=== PATIENT | female | born 1995 | race Caucasian/White ===

== ENCOUNTER 2019-01-01 20:18 | Emergency (ER) | payer BC, OTHER ==
[~2019-01-01] VITALS: Ht 154.9 cm; Wt 54.0 kg
--- NOTE | 2019-01-01 20:26 | NUR ---
pt here with " fiance and girlfriend". pt alert gcs 15. dr in same time. pt points to and c/o mid pelvic area abd pain x 3 days. associated with n/v/d after she eats. pt relates fever at home. pain rating 4. pt also c/o pain with ua and going ua more then usual. denies blood in ua. also c/o vaginal d/c. denies other vaginal c/os. no acute sighns of dyspnea noted. lungs cta bilaterally. abd soft nondistended tender to palpation all quads ecept ruq. done seing pt at 2030.
[2019-01-01] MEDS ORDERED: ONDANSETRON 4 MG/2 ML (SDV) Z0FRAN IVP ONE (20:30)
[2019-01-01] MEDS ORDERED: LACTATED RINGERS 1,000 ML IV SCH (20:30)
--- NOTE | 2019-01-01 20:35 | ED Abdominal Pain ---
General Chief Complaint: Abdominal/GI Problems Stated Complaint: ABD PAIN,VOMITING Source of Information: Patient Exam Limitations: No Limitations History of Present Illness Date Seen by Provider: January 01, 2019 Time Seen by Provider: 20:33 Initial Comments To ER per private vehicle with reports of suprapubic abdominal pain for 3 days, abdominal firmness, diarrhea, vomiting about 20 minutes consistently after eating. Chills but no fevers. Timing/Duration: 2-3 Days Severity/Quality: Moderate Location: Suprapubic Radiation: No Radiation Activities at Onset: None Associated Symptoms: Nausea/Vomiting Allergies and Home Medications Allergies Coded Allergies: No Known Drug Allergies (Unverified , 01/01/19) Patient Home Medication List Home Medication List Reviewed: Yes Review of Systems Review of Systems Constitutional: see HPI EENTM: No Symptoms Reported Respiratory: No Symptoms Reported Cardiovascular: No Symptoms Reported Gastrointestinal: See HPI, Abdominal Pain, Diarrhea, Nausea Genitourinary: No Symptoms Reported Musculoskeletal: no symptoms reported Skin: no symptoms reported Psychiatric/Neurological: No Symptoms Reported Endocrine: No Symptoms Reported Hematologic/Lymphatic: No Symptoms Reported Past Xihztki-Jcwncy-Xaljki Hx Patient Social History Recent Foreign Travel: No Contact w/Someone Who Travel: No Physical Exam Vital Signs Vital Signs - First Documented 01/01/19 20:33 Temp 98.5 Pulse 84 Resp 20 B/P (MAP) 127/78 (94) Capillary Refill : Height/Weight/BMI Height: '" Weight: lbs. oz. kg; BMI Method: General Appearance: WD/WN, no apparent distress HEENT: PERRL/EOMI, normal ENT inspection Respiratory: no respiratory distress, no accessory muscle use Cardiovascular: regular rate, rhythm, no murmur Gastrointestinal: normal bowel sounds, soft; No distended, No guarding, No rebound; tenderness (suprapubic) Extremities: normal range of motion, non-tender Neurologic/Psychiatric: alert, normal mood/affect, oriented x 3 Skin: normal color, warm/dry Progress/Results/Core Measures Results/Orders Lab Results Laboratory Tests Test 01/01/19 20:33 Range/Units White Blood Count 7.7 4.3-11.0 10^3/uL Red Blood Count 4.43 4.35-5.85 10^6/uL Hemoglobin 12.7 11.5-16.0 G/DL Hematocrit 37 35-52 % Mean Corpuscular Volume 84 80-99 FL Mean Corpuscular Hemoglobin 29 25-34 PG Mean Corpuscular Hemoglobin Concent 34 32-36 G/DL Red Cell Distribution Width 14.5 10.0-14.5 % Platelet Count 199 130-400 10^3/uL Mean Platelet Volume 12.4 H 7.4-10.4 FL Neutrophils (%) (Auto) 58 42-75 % Lymphocytes (%) (Auto) 28 12-44 % Monocytes (%) (Auto) 8 0-12 % Eosinophils (%) (Auto) 6 0-10 % Basophils (%) (Auto) 0 0-10 % Neutrophils # (Auto) 4.5 1.8-7.8 X 10^3 Lymphocytes # (Auto) 2.2 1.0-4.0 X 10^3 Monocytes # (Auto) 0.6 0.0-1.0 X 10^3 Eosinophils # (Auto) 0.4 H 0.0-0.3 10^3/uL Basophils # (Auto) 0.0 0.0-0.1 10^3/uL Urine Color YELLOW Urine Clarity CLEAR Urine pH 6 5-9 Urine Specific [place] 1.020 1.016-1.022 Urine Protein 1+ H NEGATIVE Urine Glucose (UA) NEGATIVE NEGATIVE Urine Ketones NEGATIVE NEGATIVE Urine Nitrite NEGATIVE NEGATIVE Urine Bilirubin NEGATIVE NEGATIVE Urine Urobilinogen 1 NORMAL MG/DL Urine Leukocyte Esterase 1+ H NEGATIVE Urine RBC (Auto) NEGATIVE NEGATIVE Urine RBC RARE /HPF Urine WBC 2-5 /HPF Urine Squamous Epithelial Cells 2-5 /HPF Urine Crystals NONE /LPF Urine Bacteria FEW H /HPF Urine Casts PRESENT /LPF Urine Hyaline Casts RARE /LPF Urine Mucus LARGE H /LPF Urine Culture Indicated NO Sodium Level 140 135-145 MMOL/L Potassium Level 3.8 3.6-5.0 MMOL/L Chloride Level 108 H 98-107 MMOL/L Carbon Dioxide Level 21 21-32 MMOL/L Anion Gap 11 5-14 MMOL/L Blood Urea Nitrogen 10 7-18 MG/DL Creatinine 0.74 0.60-1.30 MG/DL Estimat Glomerular Filtration Rate > 60 BUN/Creatinine Ratio 14 Glucose Level 85 70-105 MG/DL Calcium Level 9.7 8.5-10.1 MG/DL Corrected Calcium 8.5-10.1 MG/DL Total Bilirubin 0.8 0.1-1.0 MG/DL Aspartate Amino Transf (AST/SGOT) 14 5-34 U/L Alanine Aminotransferase (ALT/SGPT) 14 0-55 U/L Alkaline Phosphatase 68 40-136 U/L Total Protein 7.5 6.4-8.2 GM/DL Albumin 4.6 H 3.2-4.5 GM/DL Lipase 7 L 8-78 U/L Human Chorionic Gonadotropin, Quant 5255 H <5 MIU/ML Serum Test, Qualitative POSITIVE NEGATIVE My Orders Orders - MAHIN ARNOLD APRN Cbc With Automated Diff (01/01/19 20:24) Comprehensive Metabolic Panel (01/01/19 20:24) Lipase (01/01/19 20:24) Ua Culture If Indicated (01/01/19 20:24) Hcg,Qualitative Serum (01/01/19 20:24) Ed Iv/Invasive Line Start (01/01/19 20:24) Lactated Ringers (Lr 1000 Ml Iv Solution (01/01/19 20:30) Ondansetron Injection (Zofran Injectio (01/01/19 20:30) Hcg,Quantitative (01/01/19 20:59) Medications Given in ED Current Medications Medications Dose Ordered Sig/Hillary Route Start Time Stop Time Status Last Admin Dose Admin Ondansetron HCl 8 mg ONCE ONCE IVP 01/01/19 20:30 01/01/19 20:31 DC 01/01/19 20:39 8 MG Vital Signs/I&O 01/01/19 20:33 Temp 98.5 Pulse 84 Resp 20 B/P (MAP) 127/78 (94) Departure Communication (Admissions) [id number]*discussed with her the positive test. She states that she currently has 2 children, no history of miscarriage. She currently rates her suprapubic abdominal pain at a 3 out of 10, no peritoneal signs. She is not tachycardic or hypotensive, hemoglobin is within the normal range, no leukocytosis, no history of vaginal bleeding. We do not have ultrasound available at this time,I do not suspect acute abdomen, will set her up with outpatient US tomorrow to eval for IUP and hope to rule out Ectopic. She states her menses are irregular and she has no idea when her last menstrual cycle was. We do have ultrasound available tomorrow and I have scheduled her one for 9:45 AM. Patient is in the process of moving to [place], does not have a local PCP. I spoke with Dr. Herrera, she advises to have the patient call tomorrow morning and she can have an appointment set up with Lupe Tan, nurse practitioner who works with Dr. Stockton. I will Have these results of ultrasound faxed to them. Impression Primary Impression: test positive Additional Impressions: Nausea and vomiting Qualified Codes: R11.2 - Nausea with vomiting, unspecified Suprapubic abdominal pain Disposition: 01 HOME, SELF-CARE Condition: Stable Departure-Patient Inst. Decision time for Depature: 21:21 Referrals: JORGE HERRERA DO NO,LOCAL PHYSICIAN (PCP) Primary Care Physician Patient Instructions: Nausea and Vomiting of (DC), Symptoms Add. Discharge Instructions: 1. Return tomorrow for the pelvic ultrasound to be done outpatient. Call the number on the left corner of the order sheet to ensure that this time hasn't changed, currently scheduled for 9:45 AM. Return to ER before then for any lightheadedness intolerable abdominal pain and we will have to send you to one of the [facility] where ultrasound is available to rule out ectopic . Call [facility] tomorrow morning at 8 AM to make an appointment to be seen to follow up on these results. Advised the corporate receptionist when you speak to her tomorrow morning that we talked with Dr. Javier irene and she recommended U to be seen by Lupe Ambrocio TUBE BENDER HAND with Dr Stockton as soon as possible to follow up on the ultrasound results. All discharge instructions reviewed with patient and/or family. Voiced understanding. Copy Copies To 1: LUIS ALBERTO STOCKTON MD, PETER J APRN January 01, 2019 20:35
--- NOTE | 2019-01-01 20:35 | NUR ---
labs and ua to lab by tech
[2019-01-01] MEDS ORDERED: ALPR0.5T PO (20:39)
[2019-01-01 20:41] LABS: BILIRUBIN,URINE NEGATIVE (NEGATIVE); CLARITY,URINE CLEAR; COLOR,URINE YELLOW; GLUCOSE, URINE (UA) NEGATIVE (NEGATIVE); KETONES,URINE NEGATIVE (NEGATIVE); LEUKOCYTE ESTERASE ,URINE 1+ (NEGATIVE); NITRITE,URINE NEGATIVE (NEGATIVE); PH,URINE 6 (5-9); PROTEIN,URINE 1+ (NEGATIVE); UROBILINOGEN,URINE 1 MG/DL (NORMAL)
[2019-01-01 20:42] LABS: BASOPHILS % (AUTO) 0 % (0-10); EOSINOPHILS # (AUTO) 0.4 10^3/uL (0.0-0.3); EOSINOPHILS % (AUTO) 6 % (0-10); HEMATOCRIT 37 % (35-52); HEMOGLOBIN 12.7 G/DL (11.5-16.0); LYMPHOCYTES # (AUTO) 2.2 X 10^3 (1.0-4.0); LYMPHOCYTES % (AUTO) 28 % (12-44); MEAN CORPUSCULAR HEMOGLOBIN 29 PG (25-34); MEAN CORPUSCULAR HGB CONC 34 G/DL (32-36); MEAN CORPUSCULAR VOLUME 84 FL (80-99); MEAN PLATELET VOLUME 12.4 FL (7.4-10.4); MONOCYTES # (AUTO) 0.6 X 10^3 (0.0-1.0); MONOCYTES % (AUTO) 8 % (0-12); NEUTROPHILS # (AUTO) 4.5 X 10^3 (1.8-7.8); NEUTROPHILS % (AUTO) 58 % (42-75); PLATELET COUNT 199 10^3/uL (130-400); RED CELL DISTRIBUTION WIDTH 14.5 % (10.0-14.5); WHITE BLOOD COUNT 7.7 10^3/uL (4.3-11.0)
[2019-01-01 20:53] LABS: BACTERIA,URINE FEW /HPF; HYALINE CASTS, URINE RARE /LPF; RBC,URINE RARE /HPF
[2019-01-01 21:08] LABS: ALANINE AMINOTRANSFERASE 14 U/L (0-55); ALBUMIN 4.6 GM/DL (3.2-4.5); ALKALINE PHOSPHATASE 68 U/L (40-136); BILIRUBIN,TOTAL 0.8 MG/DL (0.1-1.0); BUN/CREATININE RATIO 14; CALCIUM 9.7 MG/DL (8.5-10.1); CARBON DIOXIDE 21 MMOL/L (21-32); CHLORIDE 108 MMOL/L (98-107); CREATININE SERUM 0.74 MG/DL (0.60-1.30); GFR ESTIMATED > 60; GLUCOSE 85 MG/DL (70-105); LIPASE 7 U/L (8-78); POTASSIUM 3.8 MMOL/L (3.6-5.0); SODIUM 140 MMOL/L (135-145); TOTAL PROTEIN 7.5 GM/DL (6.4-8.2)
--- NOTE | 2019-01-01 21:34 | NUR ---
pt remains alert gcs 15. fiance and girlfriend remains in the room. they are all watching tv. pt still c/o abd pain rating 4. denies nausea and no v/d noted in er visit thus far. no acute sighns of dyspnea noted. liter bolus completed.
[2019-01-01 21:36] VITALS: BP 95/61
[2019-01-01 21:46] VITALS: BP 95/61
--- NOTE | 2019-01-01 21:46 | NUR ---
d/c instructions to pt . told to read all papers. no scripts given. pt knows f/u. i went over the handtyped by information on the chart. iv d/cd by me prior to d/c. d/c instructions to pt. told to read all papers. no scripts given. pt left ambulatory with fiance and girlfriend. pt knows f/u. i went over the handtyped by information on the chart. iv d/c by me prior to d/c. order for out pt u/s given to pt.
--- OUTSIDE RECORDS SUMMARY | 2019-01-01 23:48 | XMS REPORT | Continuity of Care Document ---
Author Organization Unknown Address Unknown Allergies Active Description Code Type Severity Reaction Onset Reported/Identified Relationship to Patient Clinical Status Yes No Known Medication Allergies Drug N/A N/A Medications There is no data. Problems There is no data. Procedures There is no data. Results There is no data. Encounters ACCT No. Visit Date/Time Discharge Status Pt. Type Provider Facility Loc./Unit Complaint [id number] 12/03/2018 15:36:02 ACT Unknown [id number] 05/20/2018 08:25:00 05/22/2018 13:45:00 DIS Inpatient [facility] JAMI OB labor [id number] 05/20/2018 06:02:00 05/20/2018 08:25:00 DIS Emergency [facility] JAMI OB contractions
== END 2019-01-01 21:46 | disposition home or self-care (01) ==
LOC: ER 20:21
DX: R11.2 Nausea with vomiting, unspecified (principal); R10.30 Lower abdominal pain, unspecified; Z32.01 Encounter for pregnancy test, result positive
CPT/HCPCS: 36415; 80053; 81000; 83690; 84702; 84703; 85025; 96374

== ENCOUNTER → 2019-01-02 | Outpatient (CLI) | payer BC ==
[~2019-01-02] MED LIST: ALPR0.5T PO
--- NOTE | 2019-01-02 11:06 | Diagnostic Imaging Report ---
Indication: Positive test. Patient's suprapubic pain. There is an intrauterine gestational sac measuring 9 mm x 7 mm x 6 mm. No definite pole is seen at this time. No perigestational sac hemorrhage is detected. Adnexal evaluation was performed. Ovaries are obscured by bowel gas. No adnexal mass or free fluid is seen. Impression: Tiny intrauterine gestational sac without evidence of pole. This likely owing to very early . Followup with serial beta hCG levels and/or ultrasound is recommended to confirm viability. Dictated by: Dictated on workstation # [id number]
== END ==
LOC: RAD 09:49
PROVIDERS: ATTEND Nurse Practitioner Family
DX: Z32.01 Encounter for pregnancy test, result positive (principal); R10.2 Pelvic and perineal pain
CPT/HCPCS: 76801; 76817

== ENCOUNTER 2019-05-23 21:39 | Outpatient (CLI) | payer BC ==
[~2019-05-23] VITALS: Ht 160 cm; Wt 64.2 kg
--- NOTE | 2019-05-23 21:45 | NUR ---
MARTIN GUZMAN presented to unit via ambulation from ED, accompanied by friend, with c/o PAIN IN VAGINA AND BACK. MARTIN GUZMAN weighed, gowned, voided, and to bed. EFHM and TOCO applied, VS taken. MARTIN GUZMAN oriented to bed controls, call light, TV, heat, and A/C controls.
[2019-05-23 21:59] LABS: BILIRUBIN,URINE NEGATIVE (NEGATIVE); CLARITY,URINE CLEAR; COLOR,URINE YELLOW; GLUCOSE, URINE (UA) NEGATIVE (NEGATIVE); KETONES,URINE NEGATIVE (NEGATIVE); LEUKOCYTE ESTERASE ,URINE 3+ (NEGATIVE); NITRITE,URINE NEGATIVE (NEGATIVE); PH,URINE 6.5 (5-9); PROTEIN,URINE 1+ (NEGATIVE); UROBILINOGEN,URINE 1 MG/DL (NORMAL)
[2019-05-23 22:08] LABS: AMORPHOUS SEDIMENT,UR FEW AMOR URATES /LPF; BACTERIA,URINE FEW /HPF; RBC,URINE RARE /HPF; WBC,URINE 25-50 /HPF
[2019-05-23] MEDS ORDERED: FLUO10CA29 PO (22:09)
[2019-05-23] MEDS ORDERED: CEPHALEXIN 250 MG (KEFLEX) CAP PO ONE ×3 (22:27→22:30)
[2019-05-23] MEDS ORDERED: CEPH-506 PO (22:28)
[2019-05-23 22:29] VITALS: BP 136/69
[2019-05-23 22:40] VITALS: BP 136/69
--- NOTE | 2019-05-23 22:49 | NUR ---
Pt continues to drink H2O and rest while on EFM, pt states feeling better, education given on UTI symptoms and precautions. while continuing water challenge.
--- NOTE | 2019-05-23 23:09 | NUR ---
Pt ambulated to private vehicle with family with written and verbal discharge orders.
[2019-05-23 23:12] VITALS: BP 136/69
--- NOTE | 2019-05-25 08:38 | Physician Query-Final Dx ---
CÉSAR ROBLES 05/25/19 0838: Clinic Account Progress/Dx Physician Query: Please give diagnosis Please include # weeks of gestation Date of Service May 23, 2019 at 21:39 TADEO COLON MD 05/27/19 0718: Clinic Account Progress/Dx DIAGNOSIS: Diagnosis 1. Intrauterine at 26 weeks gestation 2. Urinary tract infection CÉSAR ROBLES May 25, 2019 08:38 TADEO COLON MD May 27, 2019 07:18
== END 2019-05-23 23:08 | disposition home or self-care (01) ==
LOC: WSo 21:39 → LDRP 21:41 → WSo 23:08
PROVIDERS: ATTEND Family Medicine
DX: O26.892 Other specified pregnancy related conditions, second trimester (principal); R10.2 Pelvic and perineal pain; Z3A.25 25 weeks gestation of pregnancy
CPT/HCPCS: 81000; 87088; 99212

== ENCOUNTER 2019-08-09 16:42 | Outpatient (CLI) | payer BC ==
[~2019-08-09] VITALS: Ht 154.9 cm; Wt 71.1 kg
[~2019-08-09 16:42] MED LIST changes: +CEPH-506 PO; +FLUO10CA29 PO
--- NOTE | 2019-08-09 16:55 | NUR ---
MARTIN GUZMAN presented to unit via W/C from ED, accompanied by family member, with c/o vaginal pressure & pain x2 days. Pt. weighed, gowned, voided, and to bed. EFHM and TOCO applied, VS taken. Pt. oriented to bed controls, call light, TV, heat, and A/C controls.
--- NOTE | 2019-08-09 17:05 | NUR ---
Pt reports "heart beating fast in chest", dizziness. head of bed lowered. cool wash cloth applied to neck. fan on. SpO2 monitor applied. reassurance given. reports hx of anxiety, depression and PTSD. presents to L&D unit with c/o vaginal pressure x3 weeks. states her mother told her to do exercises, couldn't walk the next day. "wanted a second opinion"r/t pain. is a patient of in [place], [place]. was diagnosed with vaginosis approx 1 month ago- unable to afford antibiotics. reports vaginal discharge with odor- milky white in color. reports pain in middle of back that extends up back and into chest. c/o pain in legs x2 days- "unable to walk by self". denies urinary sx's except hesitancy. denies vaginal bleeding or leaking fluid. reports +FM.
[2019-08-09 17:16] VITALS: BP 132/70
[2019-08-09 17:18] LABS: BILIRUBIN,URINE NEGATIVE (NEGATIVE); CLARITY,URINE CLEAR; COLOR,URINE YELLOW; GLUCOSE, URINE (UA) NEGATIVE (NEGATIVE); KETONES,URINE NEGATIVE (NEGATIVE); LEUKOCYTE ESTERASE ,URINE NEGATIVE (NEGATIVE); NITRITE,URINE NEGATIVE (NEGATIVE); PROTEIN,URINE NEGATIVE (NEGATIVE)
[2019-08-09 17:23] LABS: BACTERIA,URINE TRACE /HPF
--- NOTE | 2019-08-09 17:30 | NUR ---
was called. no answer on cell phone. message left.
--- NOTE | 2019-08-09 17:52 | NUR ---
was called. pt's admit c/o, monitor tracing, and VS reviewed. new orders received.
[2019-08-09] MEDS ORDERED: ACETAMINOPHEN 500 MG TAB (TYLENOL) ONE (17:57)
[2019-08-09] MEDS ORDERED: ACETAMINOPHEN 500 MG TAB (TYLENOL) PO ONE (18:00)
[2019-08-09] MEDS ORDERED: APAP 325 MG/10.15 ML LIQ (TYLENOL) UDC ONE (18:06)
--- NOTE | 2019-08-09 18:09 | NUR ---
SVE 1cm external,thick & posterior. closed internal. unable to determine presenting part. Addendum: 08/09/19 at 1842 by DONTRELL PEREZ RN vaginal culture obtained.
[2019-08-09] MEDS ORDERED: APAP 325 MG/10.15 ML LIQ (TYLENOL) UDC PO ONE (18:15)
[2019-08-09 18:31] LABS: MEAN PLATELET VOLUME 11.7 FL (7.4-10.4); RED CELL DISTRIBUTION WIDTH 13.7 % (10.0-14.5); WHITE BLOOD COUNT 11.5 10^3/uL (4.3-11.0)
[2019-08-09 18:48] LABS: ALANINE AMINOTRANSFERASE 10 U/L (0-55); ALBUMIN 3.4 GM/DL (3.2-4.5); ALKALINE PHOSPHATASE 150 U/L (40-136); BILIRUBIN,TOTAL 0.4 MG/DL (0.1-1.0); BUN/CREATININE RATIO 8; CALCIUM 8.5 MG/DL (8.5-10.1); CARBON DIOXIDE 18 MMOL/L (21-32); CHLORIDE 106 MMOL/L (98-107); CREATININE SERUM 0.62 MG/DL (0.60-1.30); GFR ESTIMATED > 60; GLUCOSE 118 MG/DL (70-105); POTASSIUM 3.9 MMOL/L (3.6-5.0); SODIUM 135 MMOL/L (135-145); TOTAL PROTEIN 6.2 GM/DL (6.4-8.2)
--- NOTE | 2019-08-09 19:15 | NUR ---
was called with lab results. dismissal orders received. update given to LUCIANA Gregory.
[2019-08-09] MEDS ORDERED: cefTRIAXone 1,000 MG/2.86 ml vial (IM ONLY) ONE (19:17)
[2019-08-09] MEDS ORDERED: LIDOCAINE 1% INJ 20 ML 20 ML VIAL ONE (19:19)
--- NOTE | 2019-08-09 19:24 | NUR ---
POC reviewed with pt and family member. pt hostile, yelling @ this RN "this is why I don't like my Dr. she's telling me that I'm 1cm, 50% and can feel my baby's head. your telling me I'm not." reassurance given to pt. attempting to calm pt down. reviewed labor sx's with pt.
[2019-08-09] MEDS ORDERED: LIDOCAINE 1% INJ 20 ML 20 ML VIAL INJ ONE (19:30)
[2019-08-09] MEDS ORDERED: cefTRIAXone 1,000 MG/2.86 ml vial (IM ONLY) IM ONE (19:30)
--- NOTE | 2019-08-09 19:40 | NUR ---
Discharge instructions discussed with patient and friend. No questions or concerns voiced. Signature sheet signed, placed on chart. Offered wheelchair, denied per pt. Pt ambulating off unit to private vehicle with friend at side. No signs of distress noted.
--- NOTE | 2019-08-10 08:42 | Physician Query-Final Dx ---
Clinic Account Progress/Dx Physician Query: Please give diagnosis Please give # weeks gestation Date of Service Aug 09, 2019 at 16:42 CÉSAR ROBLES Aug 10, 2019 08:42
== END 2019-08-09 19:40 | disposition home or self-care (01) ==
LOC: LDRP 16:42 → WSo 16:42
PROVIDERS: ATTEND Family Medicine
DX: R10.2 Pelvic and perineal pain (principal)
CPT/HCPCS: 36415; 80053; 81000; 85027; 87088; 87210; 99214

== ENCOUNTER 2019-08-21 22:05 | Outpatient (CLI) | payer BC ==
[~2019-08-21] VITALS: Ht 154.9 cm; Wt 71.6 kg
--- NOTE | 2019-08-21 22:10 | NUR ---
MARTIN GUZMAN presented to unit via from ED, accompanied by FRIEND, with c/o CONTRACTIONS. MARTIN GUZMAN weighed, gowned, voided, and to bed. EFHM and TOCO applied, VS taken. MARTIN GUZMAN oriented to bed controls, call light, TV, heat, and A/C controls.
[2019-08-21 22:23] VITALS: BP 134/72
[2019-08-21 22:30] VITALS: BP 134/72
[2019-08-21 22:45] VITALS: BP 111/68
[2019-08-21 22:45] LABS: BILIRUBIN,URINE NEGATIVE (NEGATIVE); CLARITY,URINE CLEAR; COLOR,URINE YELLOW; GLUCOSE, URINE (UA) NEGATIVE (NEGATIVE); KETONES,URINE NEGATIVE (NEGATIVE); LEUKOCYTE ESTERASE ,URINE TRACE (NEGATIVE); NITRITE,URINE NEGATIVE (NEGATIVE); PROTEIN,URINE NEGATIVE (NEGATIVE)
[2019-08-21 22:58] LABS: BACTERIA,URINE TRACE /HPF; WBC,URINE RARE /HPF
[2019-08-21 23:15] VITALS: BP 107/60
--- NOTE | 2019-08-21 23:15 | NUR ---
REPORT OF ASSESSMENT AND UA RESULT CALLED TO DR ELKINS. ORDER RECEIVED TO D/C TO HOME, CONDITION IS STABLE FOR DISCHARGE.
--- NOTE | 2019-08-21 23:20 | NUR ---
PT INFORMED OF PLAN OF CARE. EFM D/C'D AND PT ALLOWED TO DRESS.
--- NOTE | 2019-08-21 23:30 | NUR ---
DISCHARGE INSTRUCTIONS GIVEN. PT VERBALIZES UNDERSTANDING AND SIGNATURE OBTAINED. PT D/C OFF UNIT ACCOMPANIED BY FRIEND. PT TO PRIVATE VEHICLE IN STABLE CONDITION.
--- NOTE | 2019-08-24 08:31 | Physician Query-Final Dx ---
CÉSAR ROBLES 08/24/19 0831: Clinic Account Progress/Dx Physician Query: Please give diagnosis Please include # weeks gestation Date of Service Aug 21, 2019 at 22:05 JAMIL ELKINS DO 08/24/19 1422: Clinic Account Progress/Dx Physician Query: Please give diagnosis DIAGNOSIS: Diagnosis Intrauterine at 25 weeks 2. Vaginal Pressure 3. Vaginal Pain CÉSAR ROBLES Aug 24, 2019 08:31 JAMIL ELKINS DO Aug 24, 2019 14:22
== END 2019-08-21 23:30 | disposition home or self-care (01) ==
LOC: WSo 22:05 → LDRP 22:05 → WSo 23:30
PROVIDERS: ATTEND Obstetrics & Gynecology
DX: O26.892 Other specified pregnancy related conditions, second trimester (principal); R10.2 Pelvic and perineal pain; Z3A.25 25 weeks gestation of pregnancy
CPT/HCPCS: 81000; 99213

== ENCOUNTER 2019-08-23 21:46 | Outpatient (CLI) | payer BC ==
[~2019-08-23] VITALS: Ht 154.9 cm; Wt 71.3 kg
--- NOTE | 2019-08-23 21:53 | NUR ---
MARTIN GUZMAN presented to unit via ambulation from ED, accompanied by visitor, with c/o CONTRACTIONS. MARTIN GUZMAN weighed, gowned, voided, and to bed. EFHM and TOCO applied, VS taken. MARTIN GUZMAN oriented to bed controls, call light, TV, heat, and A/C controls.
[2019-08-23 22:00] VITALS: BP 117/80
[2019-08-23 22:16] LABS: BILIRUBIN,URINE NEGATIVE (NEGATIVE); CLARITY,URINE CLEAR; COLOR,URINE YELLOW; GLUCOSE, URINE (UA) NEGATIVE (NEGATIVE); KETONES,URINE TRACE (NEGATIVE); LEUKOCYTE ESTERASE ,URINE 2+ (NEGATIVE); NITRITE,URINE NEGATIVE (NEGATIVE); PH,URINE 7.5 (5-9); PROTEIN,URINE NEGATIVE (NEGATIVE)
[2019-08-23 22:31] LABS: BACTERIA,URINE MODERATE /HPF; SQUAMOUS EPITHELIAL CELL,UR 25-50 /HPF; WBC,URINE 25-50 /HPF
--- NOTE | 2019-08-23 23:00 | NUR ---
SVE performed. no cervical change noted.
--- NOTE | 2019-08-23 23:16 | NUR ---
notified of exam, assessment, u/a. Discharge order received.
--- NOTE | 2019-08-23 23:25 | NUR ---
Discharge instructions verbalized with pt. pt very upset about going home. Wants to be induced. Verbalized with pt standards of care. Labor precautions given. Pt states she is going to follow up tomorrow in [place]
--- NOTE | 2019-08-24 08:37 | Physician Query-Final Dx ---
CÉSAR ROBLES 08/24/19 0837: Clinic Account Progress/Dx Physician Query: Please give diagnosis Please give # weeks gestation Date of Service Aug 23, 2019 at 21:46 JAMIL ELKINS DO 08/24/19 1642: Clinic Account Progress/Dx Physician Query: Please give diagnosis DIAGNOSIS: Diagnosis Intrauterine at 25 weeks 2. Vaginal Pain 3. Vaginal Pressure CÉSAR ROBLES Aug 24, 2019 08:37 JAMIL ELKINS DO Aug 24, 2019 16:42
[2019-08-24] MEDS ORDERED: D5 LR IV SOLUTION 1,000 ML IV ONE (13:25)
[2019-08-24] MEDS ORDERED: OXYTOCIN PRE-MIX DRIP 500 ML IV ONE (13:28)
== END 2019-08-23 23:25 | disposition home or self-care (01) ==
LOC: WSo 21:46 → LDRP 21:46 → WSo 23:25
PROVIDERS: ATTEND Obstetrics & Gynecology
DX: O26.892 Other specified pregnancy related conditions, second trimester (principal); R10.2 Pelvic and perineal pain; Z3A.25 25 weeks gestation of pregnancy
CPT/HCPCS: 81000; 87088; 99213

== ENCOUNTER 2019-08-24 13:25 | Inpatient (IN) | payer BC ==
[2019-08-24] VITALS (10 sets, daily range): BP systolic 105–163; BP diastolic 58–85
[~2019-08-24] VITALS: Ht 167 cm; Wt 71.3 kg
--- NOTE | 2019-08-24 13:25 | NUR ---
MARTIN GUZMAN presented to unit via WC from HOME, accompanied by FRIEND, with c/o LABOR. MARTIN GUZMAN weighed, gowned, voided, and to bed. EFHM and TOCO applied, VS taken. MARTIN GUZMAN oriented to bed controls, call light, TV, heat, and A/C controls.
[2019-08-24] MEDS: D5 LR IV SOLUTION 1,000 ML IV SCH (13:32)
--- NOTE | 2019-08-24 14:17 | NUR ---
PITOCIN COMPLETE, 2ND BAG STARTED PER ORDER, PT HOLDING INFANT IN ARMS, PT FRIEND AT SIDE, FFU/2, LT LOCHIA NOTED, WILL MONITOR CLOSELY.
[2019-08-24] MEDS ORDERED: OXYTOCIN/NORMAL SALINE 500 ML IV ONE (14:21)
[2019-08-24] MEDS ORDERED: OXYTOCIN/NORMAL SALINE 500 ML IV SCH ×2 (14:50→15:45)
[2019-08-24] MEDS ORDERED: BENZOCAINE/MENTHOL (DERMOPLAST) 60 ML CAN TP PRN (15:00)
[2019-08-24] MEDS ORDERED: WITCH HAZEL(TUCKS) 40 EA JAR TOP PRN (15:00)
[2019-08-24] MEDS ORDERED: MEASLES,MUMPS,RUBELLA 1 EA INJ SQ ONE (15:00)
[2019-08-24] MEDS ORDERED: TETANUS,DIPTH,PERTUSS P/F (BOOSTRIX) 0.5 ML VIAL IM ONE (15:00)
[2019-08-24] MEDS ORDERED: DIBUCAINE (NUPERCAINAL) 1% OINT 30 GM TOP PRN (15:00)
--- NOTE | 2019-08-24 15:03 | History & Physical-OB ---
OB - Chief Complaint & HPI Date/Time Date of Admission: Date of Admission: Aug 24, 2019 at 1:25 pm Date seen by a Provider: Aug 24, 2019 Time Seen by a Provider: 14:00 Chief Complaint/History OB-Reason for Admission/Chief: Onset of Labor Hx : 3 Hx Para: 1 Other reason for admission: Patient presented with no local physician complete and +2 with no analgesia, and the covering desk monitor physician in a . I was contacted for precipatous delivery History of Labs unknown, will obtain from patient's physician Allergies and Home Medications Allergies Coded Allergies: No Known Drug Allergies (Unverified , 01/01/19) Home Medications Fluoxetine HCl 10 Mg Capsule, 10 MG PO DAILY, (Reported) Patient Home Medication List Home Medication List Reviewed: Yes OB - History Hx of Present Care: Yes (but unknown complications, and labs. Had care in [place] without complication per the patient.) Patient Past Medical History anxiety Social History/Family History 2nd Hand Smoke Exposure: Yes OB - Admission Exam Physical Exam HEENT: NCAT Lungs: Clear Abdomen: Gravid Extremities: Normal Reflexes: Normal Cervical Dilatation: 10cm Effacement: 100% Station: +3 Membranes: Intact Heart Rate: 130's Accelerations: Accelerations Present Decelerations: No Decelerations Telephone Instrument Supervisor Variability: Average (6-25) Contractions on Admission: < 5 Minutes Apart Intensity: Firm OB - Assessment/Plan/Diagnosis Assessment Assessment: active labor Admission Dx 23 yo @ 39 weeks No local physician for care in [place] Precipitous delivery Admission Status: Inpatient Order (span 2 midnights) Reason for Inpatient Admission: Term delivery vaginal Plan Plan: Expectant Management Other Plan Arom and anticipate impending delivery TORY MEJIA DO Aug 24, 2019 3:03 pm
--- NOTE | 2019-08-24 15:05 | OB Labor & Delivery Record ---
L&D History Date of Service Date of Service: Aug 24, 2019 History Hx : 3 Hx Para: 1 Complications care in [place], no records available at time of delivery Operative Indications (Cesarea: N/A-Vaginal Delivery Intrapartal Events: Precipitous Labor < 3 hrs L&D Stage1 Stage One Onset of Labor - Date: Aug 24, 2019 Progress/Notes Patient presented complete and bulging membranes at +2 station when I was contacted and presented emergent for delivery L&D Stage2 Stage Two Stage II Date: Aug 24, 2019 Monitors and Tracing Monitor Mode: External Monitor Accelerations: Uniform Monitor Decelerations: Variable Custodial Variability: Average (6-10) Short Term Variability: Present Position: Right Occiput Anterior Presentation: Vertex Cord Descript/Complications Cord Vessel Description: 3 Vessels Complications nuchal cord x 1 Delivery Type Infant Delivery Method: Spontaneous Vaginal Anterior Shoulder: Right Episiotomy/Perineal Laceration Laceraction(s)/Extensions: No Condition of Delivery 1 minute Comment: 8 5 minute Comment: 9 Notes live male weight pending Condition of Condition of : Living Exam: No Observed Abnormalities Resuscitation Resuscitation: N/A - Spontaneous Resp L&D Stage3 Stage Three Stage III Date: Aug 24, 2019 Pictocin Pitocin Administration Comment: 30 mu wide open at delivery of placenta Placenta Delivery Placenta Delivery: Spontaneous Delivery Summary Summary Estimated blood loss (mL): 300 Attending at delivery: Tory Mejia DO Condition of Delivery Examined: Cervix Examined, Uterus Explored Post Hemorrhage: No Condition of Mother stable Condition of (s) stable TORY MEJIA DO Aug 24, 2019 3:05 pm
--- NOTE | 2019-08-24 15:45 | NUR ---
PT UP TO BR, VOIDED TRANSFERRED TO PP ROOM BY WC, BRAD- CARE COMPLETED, NO DISTRESS NOTED, LORTAB AND MOTRIN GIVEN, PLAN OF CARE EXPLAINED, INFANT AT BEDSIDE.
[2019-08-24] MEDS: HYDROcodone/APAP 5 MG/325 MG (LORTAB) TAB PO PRN (15:56)
[2019-08-24] MEDS: IBUPROFEN 600 MG (MOTRIN) TAB PO SCH ×2 (15:56→21:37)
[2019-08-24 16:44] LABS: AMPHETAMINE SCREEN, URINE NEGATIVE (NEGATIVE); BARBITURATE SCREEN URINE NEGATIVE (NEGATIVE); BENZODIAZEPINES SCREEN URINE NEGATIVE (NEGATIVE); CANNABINOID SCREEN, URINE NEGATIVE (NEGATIVE); COCAINE SCREEN URINE NEGATIVE (NEGATIVE); METHADONE STAT NEGATIVE (NEGATIVE); METHAMPHETAMINE SCREEN URINE S NEGATIVE (NEGATIVE); OPIATE SCREEN URINE NEGATIVE (NEGATIVE); OXYCODONE STAT NEGATIVE (NEGATIVE); PROPOXYPHENE STAT NEGATIVE (NEGATIVE); TRICYCLIC ANTIDEPRESSANTS SCRE NEGATIVE (NEGATIVE)
[2019-08-24 16:50] LABS: BASOPHILS % (AUTO) 0 % (0-10); EOSINOPHILS # (AUTO) 0.1 10^3/uL (0.0-0.3); EOSINOPHILS % (AUTO) 0 % (0-10); HEMATOCRIT 30 % (35-52); HEMOGLOBIN 9.8 G/DL (11.5-16.0); LYMPHOCYTES # (AUTO) 1.3 X 10^3 (1.0-4.0); LYMPHOCYTES % (AUTO) 7 % (12-44); MEAN CORPUSCULAR HGB CONC 32 G/DL (32-36); MEAN CORPUSCULAR VOLUME 85 FL (80-99); MEAN PLATELET VOLUME 12.3 FL (7.4-10.4); MONOCYTES # (AUTO) 0.8 X 10^3 (0.0-1.0); MONOCYTES % (AUTO) 4 % (0-12); NEUTROPHILS % (AUTO) 88 % (42-75); PLATELET COUNT 178 10^3/uL (130-400); RED CELL DISTRIBUTION WIDTH 14.6 % (10.0-14.5); WHITE BLOOD COUNT 18.1 10^3/uL (4.3-11.0)
[2019-08-24 16:52] LABS: MEAN CORPUSCULAR HEMOGLOBIN 27 PG (25-34)
--- NOTE | 2019-08-24 18:50 | NUR ---
PT RESTING COMFORTABLY IN BED WITH AT SIDE, NO DISTRESS NOTED, WILL MONITOR.
--- NOTE | 2019-08-24 19:17 | NUR ---
REPORT TO HERMELINDA CHOWDHURY
--- NOTE | 2019-08-24 21:30 | NUR ---
Discussion with mother about time of stay, feeding type and appropriate time frame. Pt discussed how she lost custody of previous child due to malnourishment. Pt states she was and was eating well but infant continued to loss wt. pt educated on eating well and hydration. Pt reassured that she can breast and bottle feed as long as is eating well every couple hours. SL removed and mother resting in bed with family and friends present. All questions answered at this time.
[2019-08-24] MEDS: DOCUSATE SODIUM 100 MG (COLACE) CAP PO SCH (21:37)
[2019-08-25] VITALS: BP 101/59
--- NOTE | 2019-08-25 00:05 | NUR ---
pt resting watching TV with . No concerns at this time
[2019-08-25 04:10] VITALS: BP 103/58
[2019-08-25] MEDS: IBUPROFEN 600 MG (MOTRIN) TAB PO SCH ×4 (04:27→23:49)
[2019-08-25 05:18] LABS: BASOPHILS % (AUTO) 0 % (0-10); EOSINOPHILS # (AUTO) 0.2 10^3/uL (0.0-0.3); EOSINOPHILS % (AUTO) 2 % (0-10); HEMATOCRIT 26 % (35-52); HEMOGLOBIN 8.5 G/DL (11.5-16.0); LYMPHOCYTES # (AUTO) 2.7 X 10^3 (1.0-4.0); LYMPHOCYTES % (AUTO) 23 % (12-44); MEAN CORPUSCULAR HEMOGLOBIN 28 PG (25-34); MEAN CORPUSCULAR HGB CONC 32 G/DL (32-36); MEAN CORPUSCULAR VOLUME 86 FL (80-99); MEAN PLATELET VOLUME 12.3 FL (7.4-10.4); MONOCYTES # (AUTO) 0.7 X 10^3 (0.0-1.0); MONOCYTES % (AUTO) 6 % (0-12); NEUTROPHILS # (AUTO) 7.8 X 10^3 (1.8-7.8); NEUTROPHILS % (AUTO) 68 % (42-75); PLATELET COUNT 139 10^3/uL (130-400); RED CELL DISTRIBUTION WIDTH 14.5 % (10.0-14.5); WHITE BLOOD COUNT 11.4 10^3/uL (4.3-11.0)
[2019-08-25] MEDS: D5 LR IV SOLUTION 1,000 ML IV SCH (05:19)
[2019-08-25] MEDS: CATHETER FLUSH 10 ML SYR IV SCH (05:19)
[2019-08-25] MEDS ORDERED: DIBU30OI TOP (07:57)
[2019-08-25] MEDS ORDERED: BENZ78AE2 TP (07:57)
[2019-08-25] MEDS ORDERED: DOCU100C37 PO (07:57)
[2019-08-25] MEDS ORDERED: ACHD5005 PO (07:57)
[2019-08-25] MEDS ORDERED: IBUP-844 PO (07:57)
--- NOTE | 2019-08-25 07:58 | Discharge Inst-Women's Service ---
Discharge Inst-Women's Serv Depart Medication/Instructions New, Converted or Re-Newed RX: RX on Chart Problems Reviewed?: Yes Consults/Follow Up Additional Follow Up: Yes Activity Activity: Activity as Tolerated Driving Instructions: No Driving for 1 Week NO SMOKING: NO SMOKING Nothing Inside Vagina: No Douching, No [place], No Tampons Diet Discharge Diet: No Restrictions Symptoms to Report to : Bleeding Excessive, Pain Increased, Fever Over 101 Degrees F, Vaginal Bleeding Increase, Questions/Concerns For Any Problems or Questions: Contact Your Physician TORY MEJIA DO Aug 25, 2019 07:57
--- NOTE | 2019-08-25 08:00 | Postpartum Progress Note ---
Note Note Day # 1 Subjective: Patient is without complaints. Ambulating, voiding. Tolerating a regular diet without nausea or vomiting. Normal lochia. Pain is well controlled with oral pain medications. Objective: Physical Exam: General - Alert and oriented, no apparent distress Abdomen - Soft, appropriately tender to palpation, non-distended, fundus firm at umbilicus Extremities - no edema, negative Randi's bilaterally Assessment: PPD 1 NVD Precipitous delivery Acute blood loss anemia Plan: Routine care. Encourage breast feeding. Encourage ambulation. Ferrous sulfate supplementation. Plan for discharge tomorrow Vitals - Labs Vital Signs - I&O Vital Signs Date Time Temp Pulse Resp B/P (MAP) Pulse Ox O2 Delivery O2 Flow Rate FiO2 08/25/19 04:10 36.7 58 20 103/58 (73) Room Air 08/25/19 00:00 36.4 64 20 101/59 (73) 98 Room Air 08/24/19 20:00 37.0 80 20 105/67 (80) 98 Room Air 08/24/19 18:42 36.8 71 22 131/74 (93) Room Air 08/24/19 15:44 77 22 133/71 (91) Room Air 08/24/19 15:18 85 22 113/58 (76) Room Air 08/24/19 15:03 73 22 138/65 (89) Room Air 08/24/19 14:48 67 22 140/65 (90) Room Air 08/24/19 14:33 63 22 136/81 (99) Room Air 08/24/19 14:18 36.7 71 22 135/81 (99) Room Air 08/24/19 13:25 37.1 88 22 99 Room Air I & O 08/25/19 07:00 Intake Total 3500 ml Output Total 500 ml Balance 3000 ml Labs Laboratory Tests 08/24/19 16:05: Urine Opiates Screen NEGATIVE, Urine Oxycodone Screen NEGATIVE, Urine Methadone Screen NEGATIVE, Urine Propoxyphene Screen NEGATIVE, Urine Barbiturates Screen NEGATIVE, Ur Tricyclic Antidepressants Screen NEGATIVE, Urine Phencyclidine Screen NEGATIVE, Urine Amphetamines Screen NEGATIVE, Urine Methamphetamines Screen NEGATIVE, Urine Benzodiazepines Screen NEGATIVE, Urine Cocaine Screen NEGATIVE, Urine Cannabinoids Screen NEGATIVE 08/24/19 16:38: White Blood Count 18.1H, Red Blood Count 3.57L, Hemoglobin 9.8L, Hematocrit 30L, Mean Corpuscular Volume 85, Mean Corpuscular Hemoglobin 27, Mean Corpuscular Hemoglobin Concent 32, Red Cell Distribution Width 14.6H, Platelet Count 178, Mean Platelet Volume 12.3H, Neutrophils (%) (Auto) 88H, Lymphocytes (%) (Auto) 7L, Monocytes (%) (Auto) 4, Eosinophils (%) (Auto) 0, Basophils (%) (Auto) 0, Neutrophils # (Auto) 16.0H, Lymphocytes # (Auto) 1.3, Monocytes # (Auto) 0.8, Eosinophils # (Auto) 0.1, Basophils # (Auto) 0.0 08/25/19 05:08: White Blood Count 11.4H, Red Blood Count 3.06L, Hemoglobin 8.5L, Hematocrit 26L, Mean Corpuscular Volume 86, Mean Corpuscular Hemoglobin 28, Mean Corpuscular Hemoglobin Concent 32, Red Cell Distribution Width 14.5, Platelet Count 139, Mean Platelet Volume 12.3H, Neutrophils (%) (Auto) 68, Lymphocytes (%) (Auto) 23, Monocytes (%) (Auto) 6, Eosinophils (%) (Auto) 2, Basophils (%) (Auto) 0, Neutrophils # (Auto) 7.8, Lymphocytes # (Auto) 2.7, Monocytes # (Auto) 0.7, Eosinophils # (Auto) 0.2, Basophils # (Auto) 0.0 TORY MEJIA DO Aug 25, 2019 08:00
--- NOTE | 2019-08-25 08:00 | NUR ---
THIS RN CALLED TO BEDSIDE TO GET A OUTFIT FOR OUT OF HER BAG. SELF INTRODUCED. WILL RETURN AT A LATER TIME FOR VS, MEDS AND ASSESSMENT. NO FURTHER NEEDS VOICED.
--- NOTE | 2019-08-25 08:38 | NUR ---
PT LYING IN BED, RESTING. VISITOR TO PT'S BEDSIDE.
[2019-08-25 09:10] VITALS: BP 97/63
[2019-08-25] MEDS: HYDROcodone/APAP 5 MG/325 MG (LORTAB) TAB PO PRN (09:14)
[2019-08-25] MEDS: FERROUS SULF 325 MG (IRON) TAB PO SCH (09:14)
[2019-08-25] MEDS: DOCUSATE SODIUM 100 MG (COLACE) CAP PO SCH ×2 (09:15→20:31)
[2019-08-25] MEDS: PRENATAL VITAMIN 1 EA TAB PO SCH (09:15)
--- NOTE | 2019-08-25 09:15 | NUR ---
THIS RN TO BEDSIDE, PT IN BED, LIGHTS OUT. VS OBTAINED. MEDS GIVEN PO; SEE EMAR FOR FURTHER. INITIAL SHIFT ASSESSMENT COMPLETED; SEE INTERVENTION FOR FURTHER. PT ATTEMPTED TO BREASTFEED WHILE RN IN ROOM, FELL ASLEEP. PT PREPPING TO SLEEP FOR A LITTLE BIT, PLANS TO CALL WHEN READY FOR HER MOTRIN; WILL NOT DISTURB. CALL LIGHT WITHIN REACH.
--- NOTE | 2019-08-25 10:27 | NUR ---
SOCIAL SERVICE TO PT'S BEDSIDE.
[2019-08-25 12:22] VITALS: BP 117/58
--- NOTE | 2019-08-25 12:25 | NUR ---
PT IN BED, HOLDING . FRESH ICE WATER PROVIDED PER REQUEST. MOTRIN GIVEN PO; SEE EMAR FOR FURTHER. VS OBTAINED. VISITOR TO PT'S BEDSIDE. NO NEEDS VOICED.
[2019-08-25 15:37] VITALS: BP 106/54
--- NOTE | 2019-08-25 15:39 | NUR ---
PT SITTING UP IN BED, INFANT. VS OBTAINED. NO FURTHER NEEDS VOICED.
--- NOTE | 2019-08-25 16:29 | NUR ---
CM/SS visited with the patient per social service consult. A report was made online to [facility] intake number is [id number] The patient was lying in bed while baby was in crib sleeping. She was willing to talk with CM/SS during the visit. The patient states that she is currently living with her friend in [place] that has 5 children of her own in the house. The patient verbalized that she had some items at home for the baby such as a pack and play, clothes, and diapers. No formula due to wanting to breast feed. She states that her and the father of the baby are currently not together and that change was a week ago; therefore, she moved in with her friend. The patient also reports the father of the baby verbalized to her he did not want to be the father. The patient has two other children who have both been taken from her. One through emergency guardianship and the other is now living in [place] with the paternal father. The patient had care in [place]. She declined for CM/SS to make a referral to WIC, [facility], and to [facility]. CM/SS did provide the patient with hand out with the information for resources. 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 Will continue to follow patient to assess for needs upon discharge and follow up on report made.
--- NOTE | 2019-08-25 17:15 | NUR ---
PT UP IN ROOM, DENIES ANY NEEDS AT THIS TIME. Praveen TAVARES, DIRECTOR, IN ROOM HOLDING FUSSY WHILE PT DOES HER THING.
[2019-08-25 20:00] VITALS: BP 112/55
[2019-08-26 02:09] VITALS: BP 113/68
--- NOTE | 2019-08-26 03:15 | NUR ---
Pt educated on 2nd night breastfeed babies. Infant latching well. Mother given shield per her request and gel pads. refused to latch with shield and infant is latched to mother.
--- NOTE | 2019-08-26 07:30 | NUR ---
PT SITTING UP IN BED, INFANT. BREAKFAST TRAY POSITIONED AT BEDSIDE PER REQUEST. NO FURTHER NEEDS VOICED. CALL LIGHT WITHIN REACH.
--- NOTE | 2019-08-26 07:57 | Postpartum Progress Note ---
Note Note Day # 1 Subjective: Patient is without complaints. Ambulating, voiding. Tolerating a regular diet without nausea or vomiting. Normal lochia. Pain is well controlled with oral pain medications. Objective: Physical Exam: General - Alert and oriented, no apparent distress Abdomen - Soft, appropriately tender to palpation, non-distended, fundus firm at umbilicus Extremities - no edema, negative Randi's bilaterally Assessment: PPD 2 NVD Precip delivery FOB + for gonorrhea, patient requesting testing Plan: Routine care. Testing for GC done and treatment given Rocephin 250 im, and Azithromycin 1 gm PO Encourage breast feeding. Encourage ambulation. Ferrous sulfate supplementation. Plan for discharge today Vitals - Labs Vital Signs - I&O Vital Signs Date Time Temp Pulse Resp B/P (MAP) Pulse Ox O2 Delivery O2 Flow Rate FiO2 08/26/19 02:09 36.6 63 18 113/68 (83) Room Air 08/25/19 20:00 36.4 69 18 112/55 (74) 97 Room Air 08/25/19 15:37 36.6 63 18 106/54 (71) 97 Room Air 08/25/19 12:22 36.6 76 18 117/58 (77) 97 Room Air 08/25/19 09:10 36.8 81 18 97/63 (74) 97 Room Air TORY MEJIA DO Aug 26, 2019 07:57
[2019-08-26] MEDS ORDERED: cefTRIAXone 250 MG/ML vial (IM ONLY) IM NR (08:00)
[2019-08-26] MEDS ORDERED: LIDOCAINE 1% INJ 20 ML 20 ML VIAL INJ NR (08:00)
[2019-08-26] MEDS ORDERED: AZITHROMYCIN 250 MG TAB (ZITHROMAX) PO NR (08:00)
[2019-08-26 09:20] VITALS: BP 109/55
[2019-08-26] MEDS: DOCUSATE SODIUM 100 MG (COLACE) CAP PO SCH (09:22)
[2019-08-26] MEDS: IBUPROFEN 600 MG (MOTRIN) TAB PO SCH (09:22)
[2019-08-26] MEDS: FERROUS SULF 325 MG (IRON) TAB PO SCH (09:22)
--- NOTE | 2019-08-26 09:25 | NUR ---
PT IN BED, HOLDING . VS OBTAINED. MEDS GIVEN; SEE EMAR FOR FURTHER. INITIAL SHIFT ASSESSMENT COMPLETED; SEE INTERVENTION FOR FURTHER. PLAN FOR DISCHARGE TODAY. PT DENIES ANY NEEDS OR QUESTIONS AT THIS TIME.
[2019-08-26] MEDS: PRENATAL VITAMIN 1 EA TAB PO SCH (11:01)
--- NOTE | 2019-08-26 13:16 | NUR ---
DISCHARGE PAPERS PROVIDED AND REVIEWED WITH PT, PT VERBALIZES UNDERSTANDING AND DENIES ANY QUESTIONS AT THIS TIME. PAPER SIGNED. RX'S AND FOLLOW UP APPOINTMENT CARD ALL PROVIDED AND PLACED INTO DISCHARGE FOLDER. VISITOR PRESENT AT BEDSIDE.
--- NOTE | 2019-08-26 13:36 | NUR ---
PHIL/CALEB visited with the patients nurse this A.M. to discuss possible discharge today. PHIL/CALEB was waiting on a call about if the patient screened in for assessment from [facility]. PHIL/SS called [facility] and asked for a children and family die engraving supervisor. The worker stated that she was not available but transferred me to [place] who stated that the patients case got screened in to [place]. This worker informed them that she does not live in [place] and that her correct [place] address was listed in the report. CM/SS verbalized the address for the DCF worker. CM/SS waited for call but no one called back. PHIL/SS called multiple times to find out if the patient was able to leave the hospital with baby. PHIL/CALEB finally got a hold of a worker through [facility] named Luca who reports that she got screened in for a 72 hour assessment time frame. He verbalized that she could leave the hospital. PHIL/SS confirmed this with worker and again he stated yes she could go home. The patient and her friend called this SS with questions regarding hold up on discharge. CM/SS talked to the patient about DCF report. The patient was very upset. PHIL/SS went to 3rd floor to inform the patients nurse. The nurse verbalized understanding. No other needs at this time.
--- NOTE | 2019-08-26 14:43 | NUR ---
PT DISCHARGED FROM -309 TO [facility] VIA AMBULATORY IN STABLE CONDITION ACC BY VISITOR AND THIS RN.
== END 2019-08-26 14:43 | disposition home or self-care (01) | DRG 806 ==
LOC: LDRP 13:25
PROVIDERS: ADMIT Obstetrics & Gynecology; ATTEND Obstetrics & Gynecology
PROC: 10E0XZZ Delivery of Products of Conception, External Approach (ICD-10-PCS; principal; 2019-08-24)
DX: O62.3 Precipitate labor (principal); O90.81 Anemia of the puerperium; D62 Acute posthemorrhagic anemia; O99.344 Other mental disorders complicating childbirth; F32.9 Major depressive disorder, single episode, unspecified; F41.9 Anxiety disorder, unspecified; O69.81X0 Labor and delivery complicated by cord around neck, without compression, not applicable or unspecified; O99.334 Smoking (tobacco) complicating childbirth; F17.210 Nicotine dependence, cigarettes, uncomplicated; Z3A.39 39 weeks gestation of pregnancy; Z37.0 Single live birth; Z20.2 Contact with and (suspected) exposure to infections with a predominantly sexual mode of transmission
CPT/HCPCS: 36415; 80306; 85025; 86703; 86780; 86850; 86900; 86901; 88307; 99212

== ENCOUNTER 2020-07-14 23:43 | Emergency (ER) | payer BC ==
[~2020-07-14] VITALS: Ht 152 cm; Wt 73.4 kg
[~2020-07-14 23:43] MED LIST changes: +ACHD5005 PO; +BENZ78AE5 TP; +DIBU30OI TOP; +DOCU100C37 PO; +IBUP-844 PO
[2020-07-15] MEDS ORDERED: NS IV 1000 ML 1,000 ML ONE (00:35)
[2020-07-15] MEDS ORDERED: ONDANSETRON 4 MG/2 ML (SDV) Z0FRAN ONE (00:35)
--- NOTE | 2020-07-15 00:41 | ED GI ---
General Chief Complaint: Overdose Stated Complaint: TOOK UNKNOWN SUBSTANCE,VOMITING,CAN'T WALK Nursing Triage Note: TO ED ROOM 7 VIA POV WITH C/O EATING A BROWNIE/MUFFIN COMBO THAT A FRIEND GAVE HER AT [address] [phone] AND THEN [id number] SHE STARTED TO FEEL NUMB, EXPERIENCING N/V. DURING TRIAGE THE FRIEND THAT GAVE HER THE BROWNIE/MUFFIN TOLD HER THAT SOME SUDHEER SHE IS SEEING MADE THEM FOR HER AND SHE DOES NOT KNOW WHAT IF ANYTHING WAS IN THEM. DURING TRIAGE PT IS STILL NUMB FEELING ALL OVER, DIZZY, AND NAUSEATED. Sepsis Screen: No Definite Risk Source of Information: Patient Exam Limitations: No Limitations History of Present Illness Date Seen by Provider: Jul 15, 2020 Time Seen by Provider: 00:08 Initial Comments Patient presents ER by private conveyance from home with chief complaint that a few hours before arrival she was given a brownie by a friend who was given the brownie from a different person. She doesn't know what was in it but she decided to eat it. She said it tasted nasty. She asked her friend that was in it and her friend did not tell her. She denies using any recreational drugs typically. She denies drinking. She says she smokes about a pack of cigarettes per day. She says now she feels dizzy difficult to walk nauseated and vomited a couple times. She's not having any diarrhea or constipation. No abdominal pain. No history of abdominal surgeries. Last menstrual period was in August 2019 after the of her last child. She denies fever cough chills but has some mild shortness of air. Allergies and Home Medications Allergies Coded Allergies: No Known Drug Allergies (Unverified , 01/01/19) Home Medications Benzocaine/Menthol 78 Gm Aerosol, 56 ML TP UD PRN for PAIN- SEE INSTRUCTIONS Prescribed by: TORY MEJIA on 08/25/19 0757 Dibucaine 30 Gm Oint, 0 GM TOP UD PRN for PAIN- SEE INSTRUCTIONS Prescribed by: TORY MEJIA on 08/25/19 075 Docusate Sodium 100 Mg Capsule, 100 MG PO BID PRN for CONSTIPATION-1ST LINE Prescribed by: TORY MEJIA on 08/25/19 0757 Fluoxetine HCl 10 Mg Capsule, 10 MG PO DAILY, (Reported) Hydrocodone Bit/Acetaminophen 1 Tab Tab, 1 TAB PO Q4H PRN for PAIN-MODERATE (5- 7) Prescribed by: TORY MEJIA on 08/25/19 0757 Ibuprofen 600 Mg Tablet, 600 MG PO Q6HR Prescribed by: TORY MEJIA on 08/25/19 0757 Patient Home Medication List Home Medication List Reviewed: Yes Review of Systems Review of Systems Constitutional: No chills, No diaphoresis EENTM: No Blurred Vision, No Double Vision Respiratory: Denies Cough, Denies Shortness of Air Cardiovascular: Denies Chest Pain, Denies Lightheadedness Gastrointestinal: Denies Constipated, Denies Diarrhea Genitourinary: Denies Discharge, Denies Drainage Musculoskeletal: No back pain, No joint pain All Other Systems Reviewed Negative Unless Noted: Yes Past Cstijed-Kdfxly-Xxyxex Hx Patient Social History Alcohol Use: Regular Use Alcohol Beverage of Choice: Vodka Recreational Drug Use: No Smoking Status: Current Everyday Smoker Type Used: Cigarettes 2nd Hand Smoke Exposure: Yes Recent Foreign Travel: No Contact w/Someone Who Travel: No Recent Infectious Disease Expo: No Recent Hopitalizations: No Immunizations Up To Date Date of Influenza Vaccine: Jun 24, 2019 Seasonal Allergies Seasonal Allergies: No Past Medical History Surgeries: Yes (upper lip) Respiratory: Yes Asthma Cardiac: No Neurological: No Genitourinary: No Gastrointestinal: No Musculoskeletal: No Endocrine: No HEENT: No Cancer: No Psychosocial: Yes Depression Integumentary: No Blood Disorders: No Family Medical History Patient reports no known family medical history. Physical Exam Vital Signs Vital Signs - First Documented 07/15/20 00:16 Temp 36.0 Pulse 73 Resp 14 B/P (MAP) 120/89 (99) O2 Delivery Room Air Capillary Refill : Less Than 3 Seconds Height/Weight/BMI Height: 5'1.00" Weight: 119lbs. oz. 53.465990wd; 31.00 BMI Method:Stated General Appearance: WD/WN, mild distress HEENT: PERRL/EOMI, pharynx normal Neck: full range of motion, supple, normal inspection Respiratory: chest non-tender, lungs clear, normal breath sounds, no respiratory distress, no accessory muscle use Cardiovascular: normal peripheral pulses, regular rate, rhythm Peripheral Pulses: 2+ Radial Pulses (R), 2+ Radial Pulses (L) Gastrointestinal: normal bowel sounds, non tender, soft Extremities: non-tender, normal inspection, normal capillary refill Neurologic/Psychiatric: alert, normal mood/affect, oriented x 3 Skin: normal color, warm/dry Progress/Results/Core Measures Results/Orders Lab Results Laboratory Tests Test 07/15/20 00:00 07/15/20 00:41 Range/Units Sodium Level 136 135-145 MMOL/L Potassium Level 4.7 3.6-5.0 MMOL/L Chloride Level 103 98-107 MMOL/L Carbon Dioxide Level 22 21-32 MMOL/L Anion Gap 11 5-14 MMOL/L Blood Urea Nitrogen 13 7-18 MG/DL Creatinine 0.78 0.60-1.30 MG/DL Estimat Glomerular Filtration Rate > 60 BUN/Creatinine Ratio 17 Glucose Level 117 H 70-105 MG/DL Calcium Level 9.1 8.5-10.1 MG/DL Corrected Calcium 8.7 8.5-10.1 MG/DL Total Bilirubin 0.3 0.1-1.0 MG/DL Aspartate Amino Transf (AST/SGOT) 26 5-34 U/L Alanine Aminotransferase (ALT/SGPT) 20 0-55 U/L Alkaline Phosphatase 69 40-136 U/L Total Protein 7.9 6.4-8.2 GM/DL Albumin 4.5 3.2-4.5 GM/DL Salicylates Level < 5.0 L 5.0-20.0 MG/DL Acetaminophen Level < 10 L 10-30 UG/ML Serum Alcohol < 10 <10 MG/DL My Orders Orders - IRIS JONES Ed Iv/Invasive Line Start (07/15/20 00:37) Lactated Ringers (Lr 1000 Ml Iv Solution (07/15/20 00:45) Ondansetron Injection (Zofran Injectio (07/15/20 00:45) Ua Culture If Indicated (07/15/20 00:37) Cbc With Automated Diff (07/15/20 00:37) Comprehensive Metabolic Panel (07/15/20 00:37) Alcohol (07/15/20 00:37) Drug Screen Stat (Urine) (07/15/20 00:37) Acetaminophen (07/15/20 00:37) Salicylate (07/15/20 00:37) Ekg Tracing (07/15/20 00:37) Monitor-Rhythm Ecg Trace Only (07/15/20 00:37) Urine Bedside (07/15/20 00:37) Ns Iv 1000 Ml (Sodium Chloride 0.9%) (07/15/20 00:35) Ondansetron Injection (Zofran Injectio (07/15/20 00:35) Rx-Ondansetron Po (Rx-Zofran Po) (07/15/20 02:32) Medications Given in ED Current Medications Medications Dose Ordered Sig/Hillary Route Start Time Stop Time Status Last Admin Dose Admin Ondansetron HCl 4 mg ONCE ONCE IVP 07/15/20 00:45 07/15/20 00:46 DC 07/15/20 01:15 4 MG Sodium Chloride 1,000 ml @ ud STK-MED ONCE .ROUTE 07/15/20 00:35 07/15/20 00:39 DC 07/15/20 01:15 0 MLS/HR Vital Signs/I&O 07/15/20 00:16 Temp 36.0 Pulse 73 Resp 14 B/P (MAP) 120/89 (99) O2 Delivery Room Air Blood Pressure Mean: 99 Progress Progress Note #1: Time: 00:44 Progress Note Unknown ingestion. Suspect there is perhaps marijuana. Patient appears to be in no acute distress. She has concluded her vomiting but still has some nausea severity give her some Zofran. We'll check a toxicology panel, bedside and give her a liter of lactated Ringer's. For Zofran IV. When her nausea is gone we'll start with some ice chips and do an observation period in the ER. She is talking normally and taxing on her phone to her friends. Progress Note #2: Time: 02:33 Progress Note The patient is resting comfortably. Her nausea is still okay. CBC was not collected because the sample was coagulated. We discussed repeating it versus letting the patient just go home as it would have no direct bearing now she is feeling better. The patient is okay with going home. Take-home pack of ondansetron. Encourage her to drink plenty fluids and return precautions were given. Initial ECG Impression Date: Jul 15, 2020 Initial ECG Impression Time: 01:28 Initial ECG Rate: 56 Initial ECG Rhythm: Normal Sinus Initial ECG Intervals: Normal Initial ECG Impression: Normal, Nonspecific Changes Initial ECG Comparisson: No Previous ECG Available Comment Normal sinus rhythm without clinically relevant changes. Departure Impression Primary Impression: Ingestion of foreign substance Qualified Codes: T18.9XXA - Foreign body of alimentary tract, part unspecified, initial encounter Disposition: 01 HOME, SELF-CARE Condition: Improved Departure-Patient Inst. Decision time for Depature: 02:34 Referrals: GRAYSON REAGAN MD (PCP) Primary Care Physician NO,LOCAL PHYSICIAN (Family) Primary Care Physician Patient Instructions: NO INSTRUCTIONS GIVEN Add. Discharge Instructions: Drink lots of fluids. Ondansetron one tablet every 6 hours as necessary for nausea or vomiting. Return to the ER if your symptoms are worsening. All discharge instructions reviewed with patient and/or family. Voiced understanding. Work/School Note: Work Release Form Date Seen in the Emergency Department: Jul 15, 2020 Return to Work: Jul 16, 2020 Restrictions: No Restrictions IRIS JONES Jul 15, 2020 00:41
[2020-07-15] MEDS ORDERED: LACTATED RINGERS 1,000 ML IV ONE (00:45)
[2020-07-15] MEDS ORDERED: ONDANSETRON 4 MG/2 ML (SDV) Z0FRAN IVP ONE (00:45)
[2020-07-15 01:16] LABS: ALANINE AMINOTRANSFERASE 20 U/L (0-55); ALBUMIN 4.5 GM/DL (3.2-4.5); ALKALINE PHOSPHATASE 69 U/L (40-136); BILIRUBIN,TOTAL 0.3 MG/DL (0.1-1.0); BUN/CREATININE RATIO 17; CALCIUM 9.1 MG/DL (8.5-10.1); CARBON DIOXIDE 22 MMOL/L (21-32); CHLORIDE 103 MMOL/L (98-107); CREATININE SERUM 0.78 MG/DL (0.60-1.30); GFR ESTIMATED > 60; GLUCOSE 117 MG/DL (70-105); POTASSIUM 4.7 MMOL/L (3.6-5.0); SALICYLATE < 5.0 MG/DL (5.0-20.0); SODIUM 136 MMOL/L (135-145); TOTAL PROTEIN 7.9 GM/DL (6.4-8.2)
[2020-07-15 01:22] LABS: ACETAMINOPHEN < 10 UG/ML (10-30)
[2020-07-15] MEDS ORDERED: RX-ONDANSETRON 4 MG ODT (ZOFRAN) PPK #4 PO STA (02:32)
[2020-07-15 02:46] VITALS: BP 98/58
--- NOTE | 2020-07-15 18:03 | NUR ---
PT CALLED TO CHECK ON LAB RESULTS FROM LAST NIGHTS VISIT. TOLD HER EVERYTHING WE CHECKED CAME BACK WITHIN NORMAL LIMITS.
== END 2020-07-15 02:50 | disposition home or self-care (01) ==
LOC: EDUNIT# 23:43 → ER 23:46
DX: T18.9XXA Foreign body of alimentary tract, part unspecified, initial encounter (principal); F32.9 Major depressive disorder, single episode, unspecified; F17.210 Nicotine dependence, cigarettes, uncomplicated; W45.8XXA Other foreign body or object entering through skin, initial encounter
CPT/HCPCS: 80053; 93005; 93041; 99284; G0480 ×3; 36415; 80320; 80329